=== PATIENT | male | born 1965 | race Caucasian/White ===

== ENCOUNTER 2019-05-30 15:35 | Emergency (ER) | payer OTHER ==
[~2019-05-30] VITALS: Ht 172.7 cm; Wt 88.0 kg
[2019-05-30] MEDS ORDERED: KETOROLAC 60MG/2ML VIAL IM STA (17:59)
[2019-05-30 20:00] VITALS: BP 148/80
== END 2019-05-30 20:01 | disposition home or self-care (01) ==
LOC: ER 15:35
DX: J06.9 Acute upper respiratory infection, unspecified (principal); R51 Headache; M79.18 Myalgia, other site; Z98.890 Other specified postprocedural states
CPT/HCPCS: 71045; 87804; 96372; 99284; J1885